=== PATIENT | female | born 1975 | race Caucasian/White ===

== ENCOUNTER 2020-10-13 09:06 | Outpatient (CLI) | payer SELFPAY ==
[2020-10-13 10:06] LABS: SARS-CoV-2 Ag Positive (Negative)
[2020-10-13 10:16] LABS: Influenza Control Valid (Valid)
== END 2020-10-13 09:07 | disposition home or self-care (01) ==
LOC: CHSLAB 09:09
PROVIDERS: PCP Physician Assistant; Visit Provider Physician Assistant
DX: U07.1 COVID-19 (principal)
CPT/HCPCS: 87426; 87804

== ENCOUNTER 2021-10-11 15:19 | Outpatient (CLI) | payer OTHER, SELFPAY ==
[2021-10-11 16:21] LABS: SARS-CoV-2 Ag Positive (Negative)
== END 2021-10-11 15:20 | disposition home or self-care (01) ==
PROVIDERS: PCP Family Medicine; Visit Provider Family Medicine
DX: U07.1 COVID-19 (principal)
CPT/HCPCS: 87426; C9803

== ENCOUNTER 2022-03-08 16:14 | Emergency (ER) | payer SELFPAY ==
[2022-03-08 16:20] VITALS: BP 136/84; PULSE 73; RESP 18; TEMP 36.3; O2SAT 97
--- NOTE | 2022-03-08 16:48 | ED_ITS ---
HPI - General Adult General Chief complaint: Unspecified Stated complaint: burning and numbness on tongue Source: patient Mode of arrival: ambulatory Limitations: no limitations History of Present Illness HPI narrative: this is a 46-year-old female with no significant past medical history presents with burning sensation in her tongue and some numbness has been using Listerine at night with no relief, there is some burning sensation with some numbness with some a burning sensation toward the back of her throat with no swollen tender glands no fever or chills no shortness of breath no facial edema no chest pain no shortness of breath no nausea vomiting. Onset (ago): month(s) Location: mouth Radiation: non-radiation Severity: mild Quality: burning Pain Consistency: constant Relieving factors: none Exacerbating factors: none Related Data Allergies Allergy/AdvReac Type Severity Reaction Status Date / Time No Known Allergies Allergy Verified 03/08/22 16:47 Review of Systems Review of Systems: All systems reviewed & are unremarkable except as noted in HPI and below PMFSH Past Medical History Medical History Patient denies medical problems Exam Const: General: healthy appearing and no acute distress Nutritional Appe arance: well nourished Orientation/consciousness: patient oriented x3 Limitations: no limitations HENMT: Head: normal to inspection Other: red glistening tongue with few white patches centrally located Eyes: Conjunctivae: conjunctivae normal Pupils: Equal, round and reactive pupils present EOM: EOMs intact bilaterally Direct Ophthalmoscopy: no photophobia Neck: Neck: normal visual inspection Chest: Chest palpation & inspection: normal inspection of the chest Resp: Effort & Inspection: normal respiratory effort Auscultation: clear to auscultation bilaterally Cardio: Rate: regular rate Rhythm: regular rhythm GI: GI Palp: Yes Soft to palpation Auscultation: normal bowel sounds Skin: General skin exam: normal color Rashes: no rashes Wounds: no wounds Neuro: General: patient oriented x3 Cranial nerves: Yes Nystagmus not present Speech: normal speech Extrem: General: normal to inspection and no clubbing, cyanosis or edema Psych: Mental Status: mental status grossly normal Course Course Emergency Course: talked to patient about what appears to be a oral thrush and will send nystatin swish and swallow to her pharmacy and advised patient to follow-up with her primary care physician for further evaluation and treatment. Critical Care Time Critical Care Time Critical Care Time: No Discharge Plan Discharge Clinical Impression: Oral thrush Patient Disposition: Home, Self-Care Condition: Stable Instructions: Antibiotic Form, Oral Candidiasis (ED) Additional Instructions: take medicine as prescribed and follow-up with primary care physician within 1 to 2 weeks for further evaluation and treatment. Prescriptions: New nystatin 100,000 unit/mL suspension 1 ml PO QID 10 Days Qty: 40 0RF Rx Instructions: administer 1/2 of dose in each side of the mouth Follow-up/Referrals: Cori,MD Milton [Primary Care Provider] - Time of Disposition: 16:53
[2022-03-08 16:51] VITALS: BP 136/84; PULSE 73; RESP 18; TEMP 36.3; O2SAT 97
== END 2022-03-08 16:55 | disposition home or self-care (01) ==
PROVIDERS: Emergency Provider Emergency Medicine; PCP Family Medicine
DX: B37.0 Candidal stomatitis (principal)
CPT/HCPCS: 99283

== ENCOUNTER 2024-12-10 01:51 | Emergency (ER) | payer OTHER, SELFPAY ==
[2024-12-10] VITALS (11 sets, daily range): BP systolic 116–165; BP diastolic 70–104; PULSE 78–110; RESP 16–20; TEMP 35.9–37; O2SAT 94–100
--- NOTE | 2024-12-10 02:00 | PC.NURSE ---
PATIENT WAS ABLE TO GIVE SMALL AMOUNT OF URINE. TAKEN DOWN TO LAB
--- NOTE | 2024-12-10 02:00 | ED.FEMALEGU ---
HPI - Female Genitourinary General Chief complaint: Urogenital-Female Stated complaint: side pain Time Seen by Provider: 12/10/24 02:00 Source: patient Mode of arrival: ambulatory Limitations: no limitations History of Present Illness HPI Narrative: 49-year-old female with no significant past medical history presents to the ED with a 2 hour history of -- left flank pain /left costovertebral pain which radiates anteriorly -- suprapubic pain no history of kidney stones or kidney infection. No fever or chills MD elicited complaint: back pain and flank pain Onset (ago): hour(s) ( 2 hours) Location of symptoms: suprapubic and flank Severity: severe Quality of pain: aching Consistency: constant Exacerbating factors: none Relieving factors: none Treatment prior to arrival: none Related Data Allergies Allergy/AdvReac Type Severity Reaction Status Date / Time No Known Allergies Allergy Verified 03/08/22 16:47 Review of Systems Review of Systems: All systems reviewed & are unremarkable except as noted in HPI and below Constitutional: Constitutional: Reports as per HPI and Reports no additional constitutional complaints Eyes: Eyes: Reports as per HPI and Reports no additional eye complaints ENT: Reports system reviewed and no additional complaints, except as documented and Reports as per HPI Cardiovascular: Cardiovascular: Reports as per HPI and Reports no additional cardiovascular complaints Respiratory: Respiratory: Reports as per HPI and Reports no additional respiratory complaints Gastrointestinal: Gastrointestinal: Reports as per HPI and Reports no additional gastrointestinal complaints Genitourinary: Genitourinary: Reports flank pain Comments: left CV angle pain/flank pain Musculoskeletal: Musculoskeletal: Reports no additional musculoskeletal complaints and Reports as per HPI Integumentary/Breasts: Skin/Breast: Reports system reviewed and no additional complaints, except as docu and Reports as per HPI Neurologic: Reports system reviewed and no additional complaints, except as documented and Reports as per HPI Psychiatric: Psychiatric: Reports no additional psychiatric complaints and Reports as per HPI Endocrine: Endocrine: Reports no additional endocrine complaints and Reports as per HPI Hematologic/Lymphatic: Hematologic/Lymphatic: Reports no additional hematologic/lymphatic complaints and Reports as per HPI Allergic/Immunologic: Allergic/Immunologic: Reports no additional allergic/immunologic complaints and Reports as per HPI [facility] Past Medical History Medical History Patient denies medical problems Exam Narrative: blood pressure 165/104. afebrile Const: General: ill appearing Orientation/consciousness: patient oriented x3 Limitations: no limitations HENMT: Head: normal to inspection Ears: external ears normal Face/Nose/Sinus: Normal external nose present Face and sinus: normal facial exam Mouth: Yes Normal oral and palatal mucosa present Eyes: Conjunctivae: conjunctivae normal Pupils: Equal, round and reactive pupils present EOM: EOMs intact bilaterally Direct Ophthalmoscopy: no photophobia Neck: Neck: normal visual inspection, no lymphadenopathy and no meningeal signs Chest: Chest palpation & inspection: normal inspection of the chest Resp: Effort & Inspection: normal respiratory effort Auscultation: clear to auscultation bilaterally Cardio: Rate: regular rate Rhythm: regular rhythm GI: GI Palp: Yes Soft to palpation Auscultation: normal bowel sounds Other: tenderness over the left CVA angle/flank/ suprapubic : General: Yes CVA tenderness Back/Spine/Pelvis: Back: CVA tenderness Skin: General skin exam: normal color Rashes: no rashes Wounds: no wounds Neuro: General: patient oriented x3, moves all extremities, no meningeal signs, no focal motor deficits and CN's II-XI intact bilaterally Cranial nerves: Yes Nystagmus not present Speech: normal speech Gait exam (Neuro): Normal gait present Extrem: General: normal to inspection and no clubbing, cyanosis or edema Psych: Appearance: grossly normal Mental Status: mental status grossly normal Affect: normal affect Attitude: cooperative Course Course Emergency Course: left flank pain-- CT of the abdomen revealed 3-4 mm calculus in the proximal left ureter with left hydronephrosis urinary tract infection-- patient received IV Levaquin. Vital Signs Vital signs: Vital Signs Temperature 35.9 C L 12/10/24 01:56 Pulse Rate 105 H 12/10/24 01:56 Respiratory Rate 18 12/10/24 01:56 Blood Pressure 165/104 H 12/10/24 01:56 Pulse Oximetry 99 12/10/24 01:56 Oxygen Delivery Room Air 12/10/24 01:56 Temperature 35.9 C L 12/10/24 01:56 Pulse Rate 78 12/10/24 04:17 Respiratory Rate 16 12/10/24 04:17 Blood Pressure 116/70 12/10/24 04:17 Pulse Oximetry 100 12/10/24 04:17 Oxygen Delivery Room Air 12/10/24 04:17 MDM - Female Genitourinary MDM Narrative Medical decision making narrative: Left ureteric stone with hydronephrosis and UTI-- discuss with who advised the patient to transfer to [facility] for ureteric sten hepatic steatosis Lab Data 12/10/24 02:05 12/10/24 02:05 Labs: Lab Results 12/10/24 12/10/24 Range/Units 02:05 02:13 WBC 6.9 (4.8-10.8) K/mm3 RBC 4.59 (4.20-5.40) M/mm3 Hgb 14.4 (12.0-15.0) g/dL Hct 44.0 (35.0-49.0) % MCV 95.9 (78.0-102.0) fL MCH 31.4 H (27.0-31.0) pg MCHC 32.7 (32-36) g/dL RDW 13.2 (11.6-14.4) % Plt Count 182 (150-420) K/mm3 MPV 10.5 (9.2-11.8) fl Immature Gran % (Auto) 0.4 H (0.0-0.0) % Neut % (Auto) 52.7 (50.0-70.0) % Lymph % (Auto) 36.0 (18.0-42.0) % Trinity % (Auto) 8.6 (2.0-11.0) % Eos % (Auto) 2.0 (1.0-6.0) % Baso % (Auto) 0.3 (0.0-1.0) % Lymph # (Auto) 2.48 (1.10-4.50) K/mm3 Trinity # (Auto) 0.59 (0.10-0.90) K/mm3 Eos # (Auto) 0.14 (0.02-0.50) K/mm3 Baso # (Auto) 0.02 (0.00-0.10) K/mm3 Abs Immat Gran (auto) 0.03 H (0.00-0.00) K/mm3 Absolute Neuts (auto) 3.62 (1.70-7.20) K/mm3 Absolute Nucleated RBC 0.00 (0.00-0.00) K/mm3 Nucleated RBC % 0.0 (0-0.0) % PT 11.0 (9.50-12.1) Seconds INR 1.0 APTT 23.7 L (23.9-30.70) Sec Sodium 145 (136-145) mmol/L Potassium 4.0 (3.5-5.1) mmol/L Chloride 106 (98-108) mmol/L Carbon Dioxide 29 (21-32) mmol/L Anion Gap 10 (4-12) mmol/L BUN 14 (7-18) mg/dL Creatinine 1.30 H (0.55-1.02) mg/dL Estim Creat Clear Calc 53 ml/min Estimated GFR 44 L (59 - ) Glucose 121 H (70-99) mg/dL Calculated Osmolality 301 H (285-295) mOsm/kg Lactic Acid 1.6 (0.4-2.0) mmol/L Calcium 9.2 (8.5-10.1) mg/dL Total Bilirubin 0.4 (0.00-1.00) mg/dL AST 36 (15-37) U/L ALT 57 (14-59) U/L Alkaline Phosphatase 116 (46-116) U/L Total Protein 7.8 (6.4-8.2) g/dL Albumin 3.9 (3.4-5.0) g/dL Lipase 89 H (16-77) U/L Urine Color Henna A (Yellow) Urine Appearance Cloudy A (Clear) Urine pH 5.0 (5.0-8.0) Ur Specific [place] >= 1.030 H (1.010-1.020) Urine Protein 3+ H (Negative) Urine Glucose (UA) Negative (Negative) Urine Ketones Trace H (Negative) Ur Blood (Man) 3+ H (Negative) Urine Nitrate Positive H (Negative) Urine Bilirubin 1+ H (Negative) Urine Urobilinogen 1.0 (0.2-1.0) mg/dL Leukocyte Esterase Rfl 2+ H (Negative) LAUREN/UL Urine RBC >75 H (0-2) /hpf Urine WBC 7-9 H (0-3) /hpf Ur Squamous Epith Cells Few (Few) /hpf Urine Bacteria 2+ H (None) /hpf Urine Yeast (Budding) Present H (None) /hpf Discharge Plan Discharge Clinical Impression: Calculi, ureter Urinary tract infection Qualifiers: Urinary tract infection type: site unspecified Hematuria presence: with hematuria Qualified Code(s): N39.0 - Urinary tract infection, site not specified Patient Disposition: Still a Patient Condition: Stable Additional Instructions: discussed with urologist . advised to transfer the patient to [facility]. Patient Language: Indonesian Prescriptions: No Action nystatin 100,000 unit/mL suspension 1 ml PO QID 10 Days Qty: 40 0RF Rx Instructions: administer 1/2 of dose in each side of the mouth Follow-up/Referrals: Albina,MERCY Diaz [Primary Care Provider] - Time of Disposition: 06:54
[2024-12-10 02:16] LABS: Appearance Urine Cloudy (Clear); Bilirubin Urine 1+ (Negative); Blood Urine 3+ (Negative); Glucose Urine UA Negative (Negative); Ketones Urine Trace (Negative); Leukocyte Esterase Ur 2+ LEU/UL (Negative); Nitrate Urine Positive (Negative); Protein Urine 3+ (Negative); Specific Grav Ur >= 1.030 (1.010-1.020)
[2024-12-10 02:16] LABS: Basophils Absolute Auto 0.02 K/mm3 (0.00-0.10); Basophils Percent Auto 0.3 % (0.0-1.0); Eosinophils Absolute Auto 0.14 K/mm3 (0.02-0.50); Hemoglobin 14.4 g/dL (12.0-15.0); Immature Granulocyte Absolute 0.03 K/mm3 (0.00-0.00); Immature Granulocyte Percent A 0.4 % (0.0-0.0); Lymphocytes Absolute Auto 2.48 K/mm3 (1.10-4.50); Mean Corpuscular HGB Conc 32.7 g/dL (32-36); Mean Corpuscular Hemoglobin 31.4 pg (27.0-31.0); Mean Corpuscular Volume 95.9 fL (78.0-102.0); Mean Platelet Volume 10.5 fl (9.2-11.8); Monocytes Absolute Auto 0.59 K/mm3 (0.10-0.90); Monocytes Percent Auto 8.6 % (2.0-11.0); Neutrophils Absolute Auto 3.62 K/mm3 (1.70-7.20); Neutrophils Percent Auto 52.7 % (50.0-70.0); Platelet Count Result 182 K/mm3 (150-420); Red Blood Count 4.59 M/mm3 (4.20-5.40); Red Cell Distribution Width 13.2 % (11.6-14.4); White Blood Count 6.9 K/mm3 (4.8-10.8)
[2024-12-10] MEDS: ONDANSETRON INJ 4 MG/2 ML VIAL IV PUSH ×2 (02:16→08:18)
[2024-12-10] MEDS: HYDROmorphone HCL INJ (*CRX) 2 MG/ML VIAL 0.5 MG IV PUSH (02:17)
[2024-12-10] MEDS: LACTATED RINGERS 1,000 ML 999 ML IV CONT (02:20)
[2024-12-10 02:23] LABS: Add Urine Microscopic? YES; Color Urine Amber (Yellow); RBC Urine >75 /hpf (0-2)
[2024-12-10 02:24] LABS: Bacteria Urine 2+ /hpf; Budding Yeast Urine Present /hpf; Squamous Epithelial Cell Urine Few /hpf (Few)
--- NOTE | 2024-12-10 02:24 | PC.NURSE ---
PATIENT TRANSPORTED TO CT VIA STRETCHER. PATIENT HEARD OTHER PATIENT, WHO JUST ARRIVED AND IS NOW LAUGHING WITH STAFF AND NO LONGER MOANING
[2024-12-10 02:28] LABS: Partial Thromboplastin Time 23.7 Sec (23.9-30.70)
[2024-12-10 02:29] LABS: Alanine Aminotransferase 57 U/L (14-59); Albumin Level 3.9 g/dL (3.4-5.0); Alkaline Phosphatase 116 U/L (46-116); Anion Gap 10 mmol/L (4-12); Aspartate Amino Transferase 36 U/L (15-37); Bilirubin,Total 0.4 mg/dL (0.00-1.00); Blood Urea Nitrogen 14 mg/dL (7-18); Calcium 9.2 mg/dL (8.5-10.1); Carbon Dioxide 29 mmol/L (21-32); Chloride 106 mmol/L (98-108); Estimated CRCL calculation 53 ml/min; Estimated Glomerular Filt Rate 44; Glucose 121 mg/dL (70-99); Lipase 89 U/L (16-77); Osmolality Calculated 301 mOsm/kg (285-295); Sodium 145 mmol/L (136-145); Total Protein 7.8 g/dL (6.4-8.2)
--- NOTE | 2024-12-10 02:29 | PC.NURSE ---
PATIENT RETURNED TO ROOM.
[2024-12-10 02:33] LABS: Lactic Acid Reflex 1.6 mmol/L (0.4-2.0)
--- OUTSIDE RECORDS SUMMARY | 2024-12-10 03:00 | XMS_ITS | Clinical Summary ---
Author Organization [facility] Address [address] [place] [id number] Care Team Providers Care Civilian Technician Name Role Phone Milton Persaud MD Primary Care Provider [phone] Allergies Active Allergy Reactions Criticality Noted Date Comments Codeine Vomiting 07/02/2023 Medications atorvastatin (LIPITOR) 20 MG tablet Take 1 tablet (20 mg total) by mouth nightly at bedtime. Active vitamin D2, ergocalciferol, (DRISDOL) 1.25 mg capsule Take 1 capsule (1.25 mg total) by mouth every 7 days. Active ondansetron (ZOFRAN-ODT) 4 MG disintegrating tablet Take 1 tablet (4 mg total) by mouth every 8 (eight) hours as needed for Nausea. 12 tablet 3 Active nystatin (MYCOSTATIN) 090760 UNIT/ML suspension TAKE 5 ML BY MOUTH DIRECTED 4 TIMES DAILY FOR 10 DAYS 4 Active omeprazole (PRILOSEC) 40 MG capsule Take 1 capsule (40 mg total) by mouth 2 (two) times daily. 4 Active metroNIDAZOLE (METROGEL) 0.75 % gel Apply topically 2 (two) times daily. 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 Gender Identity Not on file Sexual Orientation Not on file Last Filed Vital Signs Vital Sign Reading Time Taken Comments Blood Pressure 124/68 07/28/2024 10:18 AM CDT Pulse 67 07/28/2024 10:18 AM CDT Temperature 36.5 C (97.7 F) 07/28/2024 10:18 AM CDT Respiratory Rate 16 07/28/2024 10:18 AM CDT Oxygen Saturation 100% 07/28/2024 10:18 AM CDT Inhaled Oxygen Concentration - - Weight 105.7 kg (233 lb) 07/28/2024 8:43 AM CDT Height 154.9 cm (5' 1 ) 07/28/2024 8:43 AM CDT Body Mass Index 44.02 07/28/2024 8:43 AM CDT Plan of Treatment Health Maintenance Due Date Last Done Comments Colorectal Cancer Screening Colonoscopy (10 Years) 1975 Annual Physical 1978 Hepatitis C 1993 DTaP, Tdap and Td Vaccines (1 - Tdap) 1994 Hepatitis B Vaccines (1 of 3 - 19+ 3-dose series) 1994 COVID-19 Vaccine ( - season) 2024 Influenza Adult (#1) 2024 Mammogram Screening 07/16/2026 07/16/2024, 12/18/2022, 11/27/2021, Additional history exists Meningococcal B Vaccine Aged Out No l onger eligible based on patient's age to complete this topic Meningococcal Vaccine Aged Out No saira randi eligible based on patient's age to complete this topic Pneumococcal Vaccine: Pediatrics (0 to 5 Years) and At-Risk Patients (6 to 64 Years) Aged Out No longer eligible based on patient's age to complete this topic RSV Immunizations Under 20 Months Aged Out No longer eligible based on patient's age to complete this topic Procedures Procedure Name Priority Date/Time Associated Diagnosis Comments MG SCREENING W ROBINSON ZAFAR DIGI Routine 07/16/2024 4:31 PM CDT Visit for screening mammogram from Last 3 Months or Most Recently Relevant to Health Maintenance Results * MG SCREENING W ROBINSON ZAFAR DIGI (07/16/2024 4:31 PM CDT) Anatomical Region Laterality Modality Breast Bilateral Mammography 07/17/2024 12:0 9 PM CDT Impressions 07/17/2024 12:11 PM CDT ===== IMPRESSION: ===== 1. Stable mammographic appearance with no new findings to suggest malignancy in either breast. Assessment: ACR BI-RADS 2 - BENIGN FINDING(S) Recommendation: 1:Routine Screening Bilateral Comments: Ordered By: TYRESE CANSECO Interpreted By: Tim Salas MD, 07/17/2024 12:09 PM Narrative 07/17/2024 12:[address] PM [address] [place] [address] Examination: Digital bilateral screening mammogram with 3D Tomosynthesis Exam Date/Time: 07/16/2024 4:06 PM Reason For Exam: No prior breast procedures. 30 pound weight gain over the past year. No personal or first-degree relative history of breast cancer. No current complaints. Comparison: Mammograms from 12/18/2022 11/27/2021 07/10/2019 Technique: Digital screening mammography of both breasts was performed in addition to 3-D Tomosynthesis technique. This study was read with the assistance of a computer-aided detection system. Tissue density: There are scattered areas of fibroglandular density. Findings: Benign bilateral axillary lymph nodes. No suspicious interval change in parenchymal pattern from prior studies. There is no new focal asymmetry, dominant mass lesion, area of skin thickening, or cluster of suspicious appearing calcifications in either breast to suggest malignancy. us Tyrese Canseco MD MAMMO Final Resu lt from Last 3 Months or Most Recently Relevant to Health Maintenance Insurance [place] [employer] Care Teams Civilian Technician Relationship Specialty Start Date End Date Milton Persaud MD [address] [place] [phone] PCP - General FAMILY PRACTICE 03/13/19
--- OUTSIDE RECORDS SUMMARY | 2024-12-10 03:00 | XMS_ITS | Encounter Summary ---
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
--- NOTE | 2024-12-10 03:15 | PC.NURSE ---
IS GOING HOME FOR NOW. PATIENT IS RESTING ON STRETCHER. CALL LIGHT IN REACH
[2024-12-10] MEDS: TAMSULOSIN HCL 0.4 MG CAPSULE PO (03:36)
--- NOTE | 2024-12-10 04:00 | PC.NURSE ---
RESTING ON STRETCHER. CURRENTLY WAITING ON CT RESULTS. DENIES ANY NEEDS
[2024-12-10] MEDS: levoFLOXacin 500 MG/D5W 100 ML 500 MG/100 ML BAG 100 MG IVPB (04:31)
--- NOTE | 2024-12-10 05:00 | PC.NURSE ---
CURRENTLY RESTING ON STRETCHER WITH EYES CLOSED. RESP EVEN AND UNLABORED. CALL LIGHT IN REACH.
--- NOTE | 2024-12-10 07:06 | PC.NURSE ---
REPORT GIVEN TO JULIA CARDENAS
[2024-12-10] MEDS: LACTATED RINGERS 1,000 ML 100 ML IV CONT (08:18)
--- NOTE | 2024-12-12 13:07 | PC.NURSE ---
Final urine culture report; mixed genital sheila isolated, no further action or treatment needed per erp Dr. Harvey
== END 2024-12-10 09:45 | disposition short-term general hospital (02) ==
PROVIDERS: Emergency Provider Internal Medicine Critical Care Medicine; PCP Physician Assistant
DX: N20.1 Calculus of ureter (principal); N39.0 Urinary tract infection, site not specified
CPT/HCPCS: 36415; 74176; 80053; 81001; 83605; 83690; 85025; 85610; 85730; 87086; 96361; 96365; 96375; 96376; 99285; A9270; J1171; J1956; J2405; J7120

== ENCOUNTER 2024-12-15 14:48 | Emergency (ER) | payer OTHER, SELFPAY ==
--- NOTE | ~2024-12-15 | CT_ITS ---
EXAMINATION: CT abdomen pelvis wo con DATE: 12/15/2024 16:06 INDICATION: Left ureteral stent with left flank pain TECHNIQUE: Computed tomography (CT) of the abdomen and pelvis was performed without intravenous contr ast. Automated exposure control and iterative reconstruction technique were employed. The dose-length product was 1370.72 mGy-cm. COMPARISON: 12/10/2024 FINDINGS: Lung bases are clear. Heart size is normal. No pericardial or pleural effusion. Small sliding-type hi atal hernia. Cholecystectomy clips the gallbladder fossa. There is diffuse hepatic steatosis with foc al sparing along the gallbladder fossa. Spleen, pancreas, right kidney and bilateral adrenal glands a re normal. Peripheral placement of a left internal ureteral stent with loops in expected position at the left renal pelvis and in the bladder. The previously seen 3 to 4 mm stone in the proximal left ur eter has regressed distally, now seen alongside the anterior margin of the ureteral stent 4 cm above level of the ureterovesicular junction (on series 3, image 149 and sagittal series 602, image 109). T here are scattered colonic diverticula without adjacent from trace stranding to suggest diverticuliti s. Small bowel and appendix are normal. Tiny fat-containing umbilical hernia with change of likely un derlying umbilical hernia mesh repair. Caudal to the umbilical umbilical hernia mesh repair is a larg er widemouthed fat-containing ventral hernia. The uterus is not identified and has likely been surgic ally resected. No free intraperitoneal gas or fluid. No pathologically enlarged abdominal or pelvic l ymphadenopathy. Bones are unremarkable. IMPRESSION: 1. Interval placement of a left internal ureteral stent which is in expected position with advancemen t of a 3-4 mm stone previously in the proximal left ureter, now along side the stent in the distal ur eter 4 cm above the ureterovesicular junction. Reviewed, dictated and finalized at location B. GIOUS ACTIVITIES DIRECTOR IMPRESSION: 1. Interval placement of a left internal ureteral stent which is in expected po sition with advancement of a 3-4 mm stone previously in the proximal left urete r, now along side the stent in the distal ureter 4 cm above the ureterovesicula r junction.
[2024-12-15 14:51] VITALS: BP 152/68; PULSE 97; RESP 16; TEMP 36.6; O2SAT 95
--- NOTE | 2024-12-15 15:55 | ED.FEMALEGU ---
HPI - Female Genitourinary General Chief complaint: Urogenital-Female Stated complaint: bladder pain, has renal stent Time Seen by Provider: 12/15/24 15:19 History of Present Illness HPI Narrative: Patient presenting here with left flank pain and hematuria, this has been persistent since she got a stent placed a few days ago. She did take a Tylenol 3 right before arriving here and now her pain has completely resolved. Related Data Allergies Allergy/AdvReac Type Severity Reaction Status Date / Time No Known Allergies Allergy Verified 03/08/22 16:47 Review of Systems Review of Systems: All systems reviewed & are unremarkable except as noted in HPI and below PMFSH Past Medical History Medical History Patient denies medical problems Exam Narrative: EXAMINATION OF ORGAN SYSTEMS/BODY AREAS: Constitutional: Vital signs per nursing GENERAL:[No acute distress, non-toxic appearing.] HEAD: Normal with no signs of head trauma. EYES: EOMI, conjunctiva normal ENT: Hearing grossly intact LUNGS: Nonlabored breathing. HEART: [Regular rate and rhythm] ABD: [Soft], [nontender to palpation], no significant left CVA tenderness EXT: Normal range of motion SKIN: [No rashes or lesions.] NEURO: [Alert and oriented x 3. No gross focal sensory or strength deficits.] PSYCH: Normal affect Course Vital Signs Vital signs: Vital Signs Temperature 97.8 F 12/15/24 14:51 Pulse Rate 97 12/15/24 14:51 Respiratory Rate 16 12/15/24 14:51 Blood Pressure 152/68 H 12/15/24 14:51 Pulse Oximetry 95 12/15/24 14:51 Oxygen Delivery Room Air 12/15/24 14:51 Temperature 97.8 F 12/15/24 14:51 Pulse Rate 97 12/15/24 14:51 Respiratory Rate 16 12/15/24 14:51 Blood Pressure 152/68 H 12/15/24 14:51 Pulse Oximetry 95 12/15/24 14:51 Oxygen Delivery Room Air 12/15/24 14:51 MDM - Female Genitourinary MDM Narrative Medical decision making narrative: 49-year-old female presenting with left flank pain, she has also had persistent hematuria, had a recent stent placement a few days ago, the pain has now completely resolved. Will obtain CT here to ensure stent in good place, and UA to ensure resolution of infection. She has been taking Bactrim CT shows good placement of stent, with advancement of stone. UA without obvious acute infection at this time. Discussed with patient, she continues to be very well appearing in no distress, agreeable to outpatient management with follow-up to her urologist with strict return precautions. Partner at bedside. Lab Data Labs: Lab Results 12/15/24 Range/Units 15:36 Urine Color Light red H (Yellow) Urine Appearance Clear (Clear) Urine pH 6.0 (5.0-9.0) Ur Specific [place] 1.009 (1.001-1.035) Urine Protein 2+ H (Negative) mg/dL Urine Glucose (UA) Negative (Negative) mg/dL Urine Ketones Negative (Negative) mg/dL Ur Blood (Man) 3+ H (Negative) Urine Nitrate Negative (Negative) Urine Bilirubin Negative (Negative) Urine Urobilinogen 0.2 (<2.0) mg/dL Leukocyte Esterase Rfl 1+ H (Negative) LAUREN/UL Urine RBC >100 H (0-2) /hpf Urine WBC 6-10 H (0-3) /hpf Ur Squamous Epith Cells Occasional (Few) /hpf Urine Bacteria None seen /hpf Urine Casts 0-2 Discharge Plan Discharge Clinical Impression: Ureterolithiasis Patient Disposition: Home, Self-Care Condition: Stable Instructions: Ureteral Stones (ED), Ureteral Stent Placement (DC) Additional Instructions: Please follow up with your urologist; you can always return to the ER for any further issues Patient Language: Luxembourgish Prescriptions: No Action nystatin 100,000 unit/mL suspension 1 ml PO QID 10 Days Qty: 40 0RF Rx Instructions: administer 1/2 of dose in each side of the mouth Follow-up/Referrals: Albina,MERCY Diaz [Primary Care Provider] -
[2024-12-15 16:53] LABS: Bacteria Urine None Seen /hpf; Non Pathogenic Casts 0-2; RBC Urine >100 /hpf (0-2); Squamous Epithelial Cell Urine Occasional /hpf (Few)
[2024-12-15 17:02] LABS: Add Urine Microscopic? YES; Appearance Urine Clear (Clear); Bilirubin Urine Negative (Negative); Blood Urine 3+ (Negative); Glucose Urine UA Negative (Negative); Ketones Urine Negative (Negative); Leukocyte Esterase Ur 1+ LEU/UL (Negative); Nitrate Urine Negative (Negative); Protein Urine 2+ mg/dL (Negative); Specific Grav Ur 1.009 (1.001-1.035); Urobilinogen Urine 0.2 mg/dL (<2.0)
[2024-12-15 17:04] LABS: Color Urine Light Red (Yellow)
--- OUTSIDE RECORDS SUMMARY | 2024-12-15 17:08 | XMS_ITS | Encounter Summary ---
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
--- OUTSIDE RECORDS SUMMARY | 2024-12-15 17:09 | XMS_ITS | Clinical Summary ---
Author Organization [facility] Address [address] [place] [address] Care Team Providers Care Hydraulic Operator Name Role Phone Milton Persaud MD Primary Care Provider [phone] Allergies Active Allergy Reactions Criticality Noted Date [...] Nausea. 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
[2024-12-15 17:30] VITALS: BP 150/77; PULSE 65; RESP 16; O2SAT 97
--- OUTSIDE RECORDS SUMMARY | 2024-12-15 17:36 | XMS_ITS | Clinical Summary ---
Author Organization [facility] Address [address] [place] [id number] Care Team Providers Care Planner/Scheduler Name Role Phone Milton Persaud MD Primary Care Provider [phone] Allergies Active Allergy Reactions Criticality Noted Date [...] Nausea. 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
--- OUTSIDE RECORDS SUMMARY | 2024-12-15 17:36 | XMS_ITS | Encounter Summary ---
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
== END 2024-12-15 17:45 | disposition home or self-care (01) ==
PROVIDERS: Emergency Provider Emergency Medicine; PCP Physician Assistant
DX: N20.1 Calculus of ureter (principal)
CPT/HCPCS: 74176; 81001; 87086; 99284

== ENCOUNTER 2025-01-31 21:31 | Emergency (ER) | payer OTHER, SELFPAY ==
--- NOTE | ~2025-01-31 | XR_ITS ---
EXAM: XR knee RT 3V DATE: 01/31/2025 21:51 HISTORY: FALL THIS EVENING. RIGHT KNEE PAIN. . COMPARISON: None available. FINDINGS: Normal mineralization. No fracture or dislocation. No lytic or blastic lesion. Joint space s are maintained. Quadriceps enthesopathy. No erosion or periosteal change. Soft tissues within kumar l limits. Trace right knee joint fluid. IMPRESSION: No acute osseous finding in the right knee. Reviewed, dictated and finalized at location K.
--- NOTE | ~2025-01-31 | XR_ITS ---
EXAM: XR foot RT min 3V DATE: 01/31/2025 21:51 HISTORY: toe and foot pain after fall this evening. . COMPARISON: None available. FINDINGS: Normal mineralization. No fracture or dislocation. No lytic or blastic lesion. Joint space s are maintained. Achilles and plantar enthesopathy No erosion or periosteal change. Soft tissues wit hin normal limits. IMPRESSION: No acute osseous finding in the right foot. Reviewed, dictated and finalized at location K.
[2025-01-31 21:34] VITALS: BP 129/100; PULSE 90; RESP 15; TEMP 36.6; O2SAT 100
--- OUTSIDE RECORDS SUMMARY | 2025-01-31 21:35 | XMS_ITS | Clinical Summary ---
Author Organization [facility] Address [address] [place] [address] Care Team Providers Care Collar Pointer Name Role Phone Milton Persaud MD Primary Care Provider [phone] Source Comments [facility],non-owned Affiliates and Associated Physician Practices is amultiple site organization consisting of ambulatory clinics and hospital sitesin [place], [place], [place] and [place]. This disclosure is being madepursuant to the Care Everywhere program and may not contain all information available regarding this patient. Last updated 18.[facility] Allergies No known active allergies Medications * Be aware that medications may not be up to date on this document. Alwaysverify current medications with the patient. omeprazole (PriLOSEC) 40 MG capsule Take 1 (one) capsule by mouth daily before breakfast Active vitamin D, ergocalciferol, (Drisdol) 1.25 MG (48614 UT) capsule Take 1 (one) capsule by mouth every 7 days Active atorvastatin (Lipitor) 20 MG tablet Take 1 (one) tablet by mouth at bedtime Active acetaminophen (Tylenol) 500 MG tablet Take 1 (one) tablet by mouth every 4 hours as needed for Fever or Pain 30 tablet 12/31/2024 5:09 PM CDT 5 Active ibuprofen (Motrin) 400 MG tablet Take 1 (one) tablet by mouth every 6 hours as needed for Pain 30 tablet 12/31/2024 5:09 PM CDT 5 Active tamsulosin (Flomax) 0.4 MG capsule Take 1 (one) capsule by mouth once daily after breakfast At the same time every day after a meal. 30 capsule 5 Active oxyCODONE, immediate release, (Roxicodone) 5 MG tabletIndicatio ns:Ureterolithi asis Take 1 (one) tablet by mouth every 6 hours as needed for Pain 5 tablet 12/31/2024 5:09 PM CDT Active ondansetron, disintegrating, (Zofran ODT) 4 MG tablet Take 1 (one) tablet by mouth every 6 hours as needed for Nausea/Vomitin g Allow tablet to dissolve on the tongue 30 tablet 12/12/2024 9:16 AM CLAIM EXAMINER 01/12/20 Active Problems Problem Noted Date Diagnosed Date Hydronephrosis, unspecified hydronephrosis type 12/10/2024 Urinary tract infection without hematuria, site unspecified 12/10/2024 GERD (gastroesophageal reflux disease) HLD (hyperlipidemia) 12/10/2024 Encounters Date Type Department Care Team Description 12/31/2024 2:06 PM CDT Anesthesia Event [facility] [address] [place] [phone] Dg Burnett MD Keeven, Grace C, VISITOR SERVICES COORDINATOR-RETAIL SALES LEAD 12/31/2024 2:00 PM CDT - 12/31/2024 3:45 PM CDT Surgery [facility] [address] [place] [phone] Norbert Cormier MD Cystoscopy, LEFT retrograde pyelogram 12/31/2024 12:02 PM CDT - 12/31/2024 6:26 PM CDT Hospital Encounter [facility] [address] [place] [phone] Norbert Cormier MD Surgery General Discharge Disposition: Home or Self Care 12/31/2024 Travel 12/23/2024 Travel 12/21/2024 Telephone [facility] - Urology [address] [place] [address] [address] [place] [phone] Norbert Cormier MD 12/11/2024 7:30 AM CLAIM EXAMINER - 12/11/2024 8:48 AM CLAIM EXAMINER Surgery [facility] [address] [place] [phone] Norbert Cormier MD CYSTOSCOPY WITH INSERTION LEFT URETERAL STENT 12/11/2024 7:30 AM CLAIM EXAMINER Anesthesia Event [facility] [address] [place] [phone] Dg Burnett MD Kirkpatrick, Holly E, APRN-CYLINDER DIE MACHINE OPERATOR 12/11/2024 Orders Only [facility] - Urology [address] [place] [address] [address] [place] [address] Joesph Hillman MD Kidney stones 12/10/2024 10:47 AM CLAIM EXAMINER - 12/12/2024 5:16 PM CLAIM EXAMINER Hospital Encounter [facility] [address] [place] [address] Álvaro Daugherty MD Stanley, Chad, MD Pollard, Kelvin L II, MD Raza, Awais, MD Internal Medicine Discharge Disposition: Home or Self Care 12/10/2024 10:45 AM CLAIM EXAMINER - 12/10/2024 10:46 AM CLAIM EXAMINER Emergency [facility] [address] [place] [phone] Discharge Disposition: Home or Self Care 12/10/2024 Travel from Last 3 Months Social History Tobacco Use Types Packs/Day Years Used Date Smoking Tobacco: Never Passive Smoke Exposure: Never Smokeless Tobacco: Never Tobacco Cessation:Counseling Given: Not Answered Alcohol Use Standard Drinks/Week Comments Not Currently 0 (1 standard drink = 0.6 oz pur e alcohol) AUDIT-C Answer Date Recorded Q1: How often do you have a drink containing alcohol? Never 12/10/2024 Q2: How many drinks containi ng alcohol do you have on a typical day when you are drinking? Patient does not drink Q3: How often do you have si x or more drinks on one occasion? Never 12/10/2024 Overall Financial Resource Strain (CARDIA) Answe r Date Recorded How hard is it for you to pa y for the very basics like food, housing, medical care, and heating? Not hard at all 12/10/2024 [facility] of Occupat ional Health - Occupational Stress Questionnaire Answer Date Recorded Do you feel stress - tense, restless, nervous, or anxious, or unable to sleep at night because your mind is troubled all the time - these days? Only a little 12/10/2024 Hunger Vital Sign Answer Date Recorded Within the past 12 months, y ou worried that your food would run out before you got the money to buy more. Never true 12/10/19 25 Within the past 12 months, t he food you bought just didn't last and you didn't have money to get more. Never true 12/10/2024 PRAPARE - Transportation Answer Date Re corded In the past 12 months, has l ack of transportation kept you from medical appointments or from getting medications? No 11/15 In the past 12 months, has l ack of transportation kept you from meetings, work, or from getting things needed for daily living? No 12/10/2024 Housing Stability Vital Sign Answer Piotr e Recorded In the last 12 months, was t here a time when you were not able to pay the mortgage or rent on time? No 12/10/2024 In the past 12 months, how m any times have you moved where you were living? 0 12/10/2024 At any time in the past 12 m [facility], were you homeless or living in a custodial (including now)? No 12/10/2024 Comments No Sex and Gender Information Value Date Recorded Sex Assigned at Not on file Legal Sex Female 9:07 AM CLAIM EXAMINER Gender Identity Not on file Sexual Orientation Not on file Last Filed Vital Signs Vital Sign Reading Time Taken Comments Blood Pressure 129/81 12/31/2024 6:06 PM CDT Pulse 93 12/31/2024 6:06 PM CDT Temperature 36.7 C (98 F) 12/31/2024 4:58 PM CDT Respiratory Rate 16 12/31/2024 6:06 PM CDT Oxygen Saturation 95% 12/31/2024 6:06 PM CDT Inhaled Oxygen Concentration - - Weight 104.4 kg (230 lb 1.6 oz) 12/31/2024 1:46 PM CDT Height 154.9 cm (5' 1 ) 12/31/2024 1:44 PM CDT Body Mass Index 43.48 12/31/2024 1:44 PM CDT Plan of Treatment Upcoming Encounters Date Type Department Care Team (Late st Contact Info) Description 03/25/2025 11:00 AM CDT Office Visit [facility] - Urology [address] [place] [address] Raji Fiore PA [address] [place] [phone] Health Maintenance Due Date Last Done Comments COLOGUARD (AGES 45-75) - COLON CA SCREENING 1975 COLON MONITORING 1975 COLONOSCOPY - COLON CA SCREENING 1975 CT COLONOGRAPHY - COLON CA SCREENING 1975 Colorectal Cancer Screening 1975 FIT - COLON CA SCREENING 1975 FLEX SIG - COLON CA SCREENING 1975 PAP SMEAR 1975 HIV SCREENING 1990 HEPATITIS C SCREENING 10/06/1993 DTAP/TDAP/TD VACCINES (1 - Tdap) 1994 HEPATITIS B VACCINE (1 of 3 - 19+ 3-dose series) 1994 COVID-19 VACCINE ( - season) 2024 DEPRESSION SCREENING 10/14/2024 INFLUENZA VACCINE (Season Ended) 2025 ZOSTER VACCINE (1 of 2) 2025 MAMMOGRAM 07/16/2026 07/16/2024, 12/2023, 12/18/2022, Additional history exists HIB VACCINE Aged Out No longer eligi ble based on patient's age to complete this topic HPV VACCINE Aged Out No longer eligi ble based on patient's age to complete this topic MENINGOCOCCAL (Group B) VACCINE SHARED DECISION-MAKING Aged Out No longer eligible based on patient's age to complete this topic MENINGOCOCCAL GROUPS A/C/Y/W VACCINE Aged Out No longer eligible based on patient's age to complete this topic Medical Devices Implanted Type Area Explosive Ordnance Handler Device Identifier Shelf Expiration Date Model / Serial / Lot Stent Uret 6fr 24cm Sft Tria - Sna Implanted:Qty: 1 on 12/11/2024 by Norbert Cormier MD at [facility] Left: Ureter [employer]aine [id number] 06/23/2027 [id number] 20 / NA / [id number] Procedures Procedure Name Priority Date/Time Associated Diagnosis Comments ENDOTRACHEAL TUBE NOTE Routine 12/31/2024 2:20 PM CDT IN CYSTO/URETERO/PYELOS COPY W/LITHOTRIPSY 12/31/2024 1:36 PM CDT Kidney stones Case Notes Reviewed 12/25 [facility] [employer] [facility] [employer] Confirm # [id number] Tech and equipment IN CYSTOURETHROSCOPY,UR ETER CATHETER 12/31/2024 1:36 PM CDT Kidney stones Case Notes Reviewed 12/25 [employer] Confirm # [id number] Tech and equipment CULTURE URINE Routine 12/11/2024 8:23 AM CLAIM EXAMINER FL CYSTO SURGERY Routine 12/11/2024 7:58 AM CLAIM EXAMINER Urinary tract infection with hematuria, site unspecified ENDOTRACHEAL TUBE NOTE Routine 12/11/2024 7:50 AM CLAIM EXAMINER IN CYSTOSCOPY,INSERT URETERAL STENT 12/11/2024 7:22 AM CLAIM EXAMINER Kidney stone on left side HEMOGLOBIN A1C Routine 12/11/2024 6:27 AM CLAIM EXAMINER LIPID PROFILE AM Draw 12/11/2024 6:27 AM CLAIM EXAMINER MAGNESIUM BLOOD Routine 12/11/2024 6:27 AM CLAIM EXAMINER RENAL FUNCTION PANEL AM Draw 12/11/2024 6:27 AM CLAIM EXAMINER CBC W AUTO DIFFERENTIAL AM Draw 12/11/2024 6:27 AM CLAIM EXAMINER HCG BETA BLOOD QUANTITATIVE STAT 12/10/2024 6:48 PM CLAIM EXAMINER URINALYSIS REFLEX MICROSCOPIC REFLEX CULTURE STAT 12/10/2024 12:56 PM CLAIM EXAMINER COMPREHENSIVE METABOLIC PANEL STAT 12/10/2024 12:56 PM CLAIM EXAMINER CULTURE URINE STAT 12/10/2024 12:56 PM CLAIM EXAMINER CBC W AUTO DIFFERENTIAL STAT 12/10/2024 11:19 AM CLAIM EXAMINER from Last 3 Months Results * ETT LINE PERFORMABLE (12/31/2024 2:20 PM CDT) Narrative Sd Chamorro MD - 12/31/2024 2:20 PM CDT Sd Chamorro MD 12/31/2024 2:21 PM Endotracheal Tube Placement: Patient Location: OR. Intubation Event Date/Time: 12/31/2024 2:15 PM Procedure: intubation ([id number]) Procedure Section: Sedation: under general anesthesia. Indications for Airway Management: anesthesia Induction: standard IV Patient Position: supine Mask Ventilation: easy with oral airway. Blade Type: Jennifer Blade Size: 3 Laryngoscopy View: grade 1 (full cords) Intubation Adjuncts: stylet Tube: endotracheal tube Placement: oral Tube type: cuff - inflated Tube Size (MM): 7 Depth of Insertion (CM): 21 Measured From: gums Cuff Inflated With: air Number of Attempts: 1. Placement Verified By: direct visualization, bilateral breath sounds and CO2 monitor Tube secured with: adhesive tape. Dentition unchanged? Yes Difficult Airway? No. Procedure Start Time: 12/31/2024 2:15 PM. Staff Section Anesthesia Provider: Sd Chamorro MD, Performed the procedure us Charity Dahl MD GENERAL ANESTHESIA ORDERABLES Final Result * CULTURE URINE (12/11/2024 8:23 AM CLAIM EXAMINER) Only the most recent of2 resultswithin the time period is included. Culture Urine No growth (<100 CFU/mL) LALY 12/12/2024 11:05 AM CLAIM EXAMINER [facility] Urine URINE SPECIMEN OBTAINED BY CLEAN CATCH PROCEDURE / Unknown 12/11/2024 8:23 AM CLAIM EXAMINER 12/11/2024 8:23 AM CLAIM EXAMINER us Norbert Cormier MD LAB - MICROBIOLOGY ORDERABL ES Final Result [facility] [address] [place] [address], [place] [phone] * [place] Cysto Surgery (12/11/2024 7:58 AM CLAIM EXAMINER) Narrative [facility] - 12/11/2024 6:28 PM CLAIM EXAMINER Fluoroscopy was used for this exam in the OR. Please see the Operative report. Norbert Cormier MD FLUOROSCOPY ORDERABLES Mari villela Result [facility] * ETT LINE PERFORMABLE (12/11/2024 7:50 AM CLAIM EXAMINER) Narrative Keiry Flaherty MD - 12/11/2024 7:50 AM CLAIM EXAMINER Keiry Flaherty MD 12/11/2024 7:50 AM Endotracheal Tube Placement: Patient Location: OR. Intubation Event Date/Time: 12/11/2024 7:43 AM Procedure: intubation ([id number]) Procedure Section: Sedation: under general anesthesia. Indications for Airway Management: anesthesia Procedure pretreatments used? No Induction: standard IV Patient Position: sniffing Mask Ventilation: easy. Blade Type: Video Blade Size: 3 Laryngoscopy View: grade 1 (full cords) Intubation Adjuncts: stylet Tube: endotracheal tube Placement: oral Tube type: cuff - inflated Tube Size (MM): 7 Depth of Insertion (CM): 21 Measured From: teeth Cuff volume (mL): 6 Cuff Inflated With: air Number of Attempts: 1. Placement Verified By: direct visualization, bilateral breath sounds, CO2 monitor and chest auscultation Tube secured with: adhesive tape. Dentition unchanged? Yes Difficult Airway? No. Procedure Start Time: 12/11/2024 7:43 AM. Procedure End Time: 12/11/2024 7:44 AM. Procedure Total Time: 1 minutes. Staff Section Anesthesia Provider: Keiry Flaherty MD, Performed the procedure Provider #1: Dg Burnett MD. Result [facility] Dg Burnett MD GENERAL ANESTHESIA ORDERABLES Fi nal Result * HEMOGLOBIN A1C (12/11/2024 6:27 AM [facility]) Hemoglobin A1c 5.3 <=5.6 % 12/11/2024 9:12 AM [facility] Estimated Average Glucose 105 mg/dL 12/11/2024 9:12 AM [facility] Comment: HbA1c Interpretation: Normal : < 5.7% Pre-diabetes: 5.7-6.4% Diabetes: Equal to or greater than 6.5% Test results diagnostic of diabetes should be repeated for confirmation. Treatment target values recommended by ADA and other clinical organizations should be used to evaluate metabolic control in patients. Reference: [place] [employer], Standards of Care in Diabetes -2020 In patients 70 years and older consider HbA1c target range of 7.0-7.5% (Reference: Sarabjit Heller et al. JAMDA. 2012) The Sebia assay for the measurement of HbA1c is a National Glycohemoglobin Standardization Program (NGSP) certified method. Blood BLOOD SPECIMEN / Unknown Lab Venipuncture / Unknown 12/11/2024 6:27 AM CLAIM EXAMINER 12/11/2024 6:43 AM CLAIM EXAMINER us Mango Gaspar II, MD LAB - CHEMISTRY ORDERABL ES Final Result [facility] [address] [place] [address], [facility] [phone] * (ABNORMAL) CBC W AUTO DIFFERENTIAL (12/11/2024 6:27 AM [facility]) Only the most recent of2 resultswithin the time period is included. WBC 5.6 4.0 - 10.7 x10E9/L 12/11/2024 6:54 AM [facility] RBC Count 4.26 3.90 - 5.20 x10E12/L 12/11/2024 6:54 AM [facility] Hemoglobin 13.4 11.9 - 15.8 g/dL 12/11/2024 6:54 AM [facility] Hematocrit 39.8 34.8 - 46.1 % 12/11/2024 6:54 AM [facility] MCV 93.4 80.0 - 98.0 fL 12/11/2024 6:54 AM [facility] MCH 31.5 26.7 - 33.6 pg 12/11/2024 6:54 AM [facility] MCHC 33.7 31.7 - 36.3 g/dL 12/11/2024 6:54 AM [facility] RDW-CV 13.5 11.3 - 14.8 % 12/11/2024 6:54 AM [facility] Platelet Count 159 150 - 420 x10E9/L 12/11/2024 6:54 AM [facility] MPV 10.6 7.8 - 11.4 fL 12/11/2024 6:54 AM [facility] Neutrophil % 64.8 41.0 - 74.0 % 12/11/2024 6:54 AM [facility] Lymphocyte % 26.3 17.0 - 47.0 % 12/11/2024 6:54 AM [facility] Monocyte % 7.1 3.0 - 11.0 % 12/11/2024 6:54 AM [facility] Eosinophil % 0.2 0.0 - 7.0 % 12/11/2024 6:54 AM [facility] Basophil % 0.4 0.0 - 1.6 % 12/11/2024 6:54 AM [facility] Immature Granulocytes % 1.2(H) 0.0 - 1.0 % 12/11/2024 6:54 AM [facility] Neutrophil Absolute 3.65 1.60 - 7.50 x10E9/L 12/11/2024 6:54 AM [facility] Lymphocyte Absolute 1.48 1.00 - 4.40 x10E9/L 12/11/2024 6:54 AM [facility] Monocyte Absolute 0.40 0.15 - 1.00 x10E9/L 12/11/2024 6:54 AM [facility] Eosinophil Absolute 0.01 0.00 - 0.60 x10E9/L 12/11/2024 6:54 AM [facility] Basophil Absolute 0.02 0.00 - 0.13 x10E9/L 12/11/2024 6:54 AM [facility] Blood BLOOD SPECIMEN / Unknown Lab Venipuncture / Unknown 12/11/2024 6:27 AM [facility] 12/11/2024 6:43 AM [facility] us Mango Gaspar II, MD LAB - HEMATOLOGY ORDERAB LES Final Result [facility] [address] [place] [phone], [facility] [phone] * (ABNORMAL) RENAL FUNCTION PANEL (12/11/2024 6:27 AM [facility]) BUN 8 7 - 26 mg/dL 12/11/2024 7:23 AM [facility] Creatinine 1.12(H) 0.56 - 0.96 mg/dL 12/11/2024 7:23 AM [facility] Sodium 140 136 - 145 mmol/L 12/11/2024 7:23 AM [facility] Potassium 3.9 3.5 - 4.5 mmol/L 12/11/2024 7:23 AM [facility] Chloride 110(H) 98 - 107 mmol/L 12/11/2024 7:23 AM [facility] CO2 22 22 - 29 mmol/L 12/11/2024 7:23 AM [facility] Glucose 109(H) 70 - 99 mg/dL 12/11/2024 7:23 AM [facility] Albumin 3.9 3.4 - 5.0 g/dL 12/11/2024 7:23 AM [facility] Calcium 9.6 8.4 - 10.2 mg/dL 12/11/2024 7:23 AM [facility] Phosphorus 3.4 2.9 - 5.1 mg/dL 12/11/2024 7:23 AM [facility] Anion Gap 8 6 - 16 12/11/2024 7:23 AM [facility] BUN/Creatinine Ratio 7 7 - 23 12/11/2024 7:23 AM [facility] Osmolality Calculated 289 275 - 295 mOsm/kg 12/11/2024 7:23 AM [facility] eGFR by CKD-EPI 60(L) >=90 mL/min/1.7 3 m2 12/11/2024 7:23 AM [facility] Blood BLOOD SPECIMEN / Unknown Lab Venipuncture / Unknown 12/11/2024 6:27 AM [facility] 12/11/2024 6:43 AM [facility] us Mango Gaspar II, MD LAB - CHEMISTRY ORDERABL ES Final Result [facility] [address] [place] [phone], [facility] [phone] * MAGNESIUM BLOOD (12/11/2024 6:27 AM CLAIM EXAMINER) Magnesium 2.0 1.6 - 2.6 mg/dL 12/11/2024 7:23 AM [facility] Blood BLOOD SPECIMEN / Unknown Lab Venipuncture / Unknown 12/11/2024 6:27 AM CLAIM EXAMINER 12/11/2024 6:43 AM CLAIM EXAMINER Mango Gaspar II, MD LAB - CHEMISTRY ORDERABL ES Final Result [facility] [address] [place] [address], [facility] [phone] * (ABNORMAL) LIPID PROFILE (12/11/2024 6:27 AM CLAIM EXAMINER) Cholesterol Total 150 <200 mg/dL 12/11/2024 7:23 AM [facility] HDL 37(L) >40 mg/dL 12/11/2024 7:23 AM [facility] Comment: ATP III Classification of HDL Cholesterol: <40 mg/dL: Considered a major risk factor. >60 mg/dL: Considered a negative risk factor. LDL Calculated 97 <100 mg/dL 12/11/2024 7:23 AM [facility] Comment: ATP III Classification of LDL Cholesterol: <100 mg/dL: Optimal 100 - 129 mg/dL: Near Optimal/Above Optimal 130 - 159 mg/dL: Borderline High 160 - 189 mg/dL: High >190 mg/dL: Very High Triglycerides 79 <150 mg/dL 12/11/2024 7:23 AM [facility] Comment: ATP III Classification of Triglycerides: <150 mg/dL: Normal 150 - 199 mg/dL: Borderline High 200 - 400 mg/dL: High >500 mg/dL: Very High Blood BLOOD SPECIMEN / Unknown Lab Venipuncture / Unknown 12/11/2024 6:27 AM CLAIM EXAMINER 12/11/2024 6:43 AM CLAIM EXAMINER Mango Gaspar II, MD LAB - CHEMISTRY ORDERABL ES Final Result Performing Organization Address [facility] Co de Phone Number [address] [phone], [facility] [phone] * HCG BETA BLOOD QUANTITATIVE (12/10/2024 6:48 PM CLAIM EXAMINER) [facility] Beta-hCG Total Quantitative 3 mIU/mL 12/10/2024 7:23 PM [facility] Comment: HCG Numeric Result Interpretation: Non- Females: < 5 mIU/mL Post-Menopausal Females: < 7 mIU/mL This assay is cleared for use in the early detection of only. It is not approved for any other uses such as tumor marker screening, tumor marker monitoring, etc. and should not be used for any other purposes. Blood BLOOD SPECIMEN / Unknown Venipuncture / Unknown 12/10/2024 6:48 PM CLAIM EXAMINER 12/10/2024 6:57 PM CLAIM EXAMINER Mango Gaspar II, MD LAB - CHEMISTRY ORDERABL ES Final Result Performing Organization Address [facility] Co de Phone Number [address] [address], [facility] [phone] * (ABNORMAL) URINALYSIS REFLEX MICROSCOPIC REFLEX CULTURE (12/10/2024 12:56 PM CLAIM EXAMINER) [facility] Color UA Yellow Yellow, Straw 12/10/2024 1:22 PM [facility] Clarity UA Clear Clear 12/10/2024 1:22 PM [facility] Glucose UA Normal Normal 12/10/2024 1:22 PM [facility] Bilirubin UA Negative Negative 12/10/2024 1:22 PM [facility] Ketone UA Negative Negative 12/10/2024 1:22 PM [facility] Specific [place] UA 1.015 1.005 - 1.030 12/10/2024 1:22 PM [facility] Blood UA 2+(A) Negative 12/10/2024 1:22 PM [facility] pH UA 7.5 5.0 - 9.0 pH 12/10/2024 1:22 PM [facility] Protein UA Trace(A) Negative 12/10/2024 1:22 PM [facility] Urobilinogen UA Normal Normal mg/dL 12/10/2024 1:22 PM [facility] Nitrite UA Negative Negative 12/10/2024 1:22 PM [facility] Leukocyte UA 250 LAUREN/uL(A) Negative 12/10/2024 1:22 PM [facility] RBC UA >100(A) 0 - 5 # /hpf 12/10/2024 1:22 PM [facility] WBC UA 6-10(A) 0 - 5 # /hpf 12/10/2024 1:22 PM [facility] Bacteria UA Trace(A) None Seen 12/10/2024 1:22 PM [facility] Squamous Epithelial Cells 3-5 0 - 5 /hpf 12/10/2024 1:22 PM [facility] Mucus UA 1+ /LPF 12/10/2024 1:22 PM [facility] Urine URINE SPECIMEN OBTAINED BY CLEAN CATCH PROCEDURE / Unknown Collection / Unknown 12/10/2024 12:56 PM CLAIM EXAMINER 12/10/2024 12:59 PM CLAIM EXAMINER Nithya Antunez PA-C LAB - URINALYSIS DELFINA JOSEPH Final Result Performing Organization Address City/State/[facility] Co de Phone Number [facility] [address] [place] [phone], [facility] [phone] * (ABNORMAL) COMPREHENSIVE METABOLIC PANEL (12/10/2024 12:56 PM CLAIM EXAMINER) BUN 10 7 - 26 mg/dL 12/10/2024 1:54 PM [facility] Creatinine 1.03(H) 0.56 - 0.96 mg/dL 12/10/2024 1:54 PM [facility] Sodium 140 136 - 145 mmol/L 12/10/2024 1:54 PM [facility] Potassium 4.0 3.5 - 4.5 mmol/L 12/10/2024 1:54 PM [facility] Chloride 108(H) 98 - 107 mmol/L 12/10/2024 1:54 PM CLAIM EXAMINER [facility] CO2 23 22 - 29 mmol/L 12/10/2024 1:54 PM [facility] Glucose 102(H) 70 - 99 mg/dL 12/10/2024 1:54 PM [facility] Calcium 9.2 8.4 - 10.2 mg/dL 12/10/2024 1:54 PM [facility] Protein Total 7.3 6.0 - 8.3 g/dL 12/10/2024 1:54 PM [facility] Albumin 4.1 3.4 - 5.0 g/dL 12/10/2024 1:54 PM [facility] Bilirubin Total 0.6 0.2 - 1.2 mg/dL 12/10/2024 1:54 PM [facility] Alkaline Phosphatase 97 40 - 150 U/L 12/10/2024 1:54 PM [facility] ALT 43 5 - 55 U/L 12/10/2024 1:54 PM [facility] AST 34 5 - 34 U/L 12/10/2024 1:54 PM [facility] Anion Gap 9 6 - 16 12/10/2024 1:54 PM [facility] BUN/Creatinine Ratio 10 7 - 23 12/10/2024 1:54 PM [facility] Osmolality Calculated 289 275 - 295 mOsm/kg 12/10/2024 1:54 PM [facility] Albumin/Globulin Ratio 1.3 1.1 - 2.3 12/10/2024 1:54 PM [facility] eGFR by CKD-EPI 67(L) >=90 mL/min/1.7 3 m2 12/10/2024 1:54 PM [facility] Blood BLOOD SPECIMEN / Unknown Venipuncture / Unknown 12/10/2024 12:56 PM [facility] [facility] 12/10/2024 1:06 PM [facility] Nithya Antunez PA-C LAB - CHEMISTRY ORDER DOMINIQUE Final Result [facility] [address] [place] [address], [facility] [phone] from Last 3 Months Insurance [id number] Advance Directives * Full Code (Latest Code Status on File) Date Activated Date Inactivated Comments 12/10/2024 3:51 PM 12/12/2024 6:16 PM Care Teams Collar Pointer Relationship Specialty Start Date End Date Milton Persaud MD [address] [place] [phone] PCP - General Family Medicine 12/10/24
--- OUTSIDE RECORDS SUMMARY | 2025-01-31 21:35 | XMS_ITS | Encounter Summary ---
Author Organization [facility] Health Address [address] [facility] [place] [address] Care Team Providers Care Water Jet Loom Fixer Name Role Phone Milton Persaud MD Primary Care Provider [phone] Encounter Details Date Type Department Care Team (Late st Contact Info) Description 12/21/2024 Telephone [facility] - Urology [address] [facility] [address] [place] [id number] Norbert Cormier MD [address] [phone] Social History Tobacco Use Types Packs/Day Years Used Date Smoking Tobacco: Never Passive Smoke Exposure: Never Smokeless Tobacco: Never Alcohol Use Standard Drinks/Week Comments Never 0 (1 standard drink = 0.6 oz [...] and heating? Not hard at all 12/10/2024 [facility] [place] [facility] Occupat ional Health - Occupational Stress [...] any time in the past 12 m [facility], were you homeless or living in a long-term (including now)? 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 Answer Date of Assessment Author No 12/11/2024 12:14 PM Schuyler Krishnamurthy RN * Is person blind or have serious difficulty seeing? Answer Date of Assessment Author No 12/11/2024 12:14 PM Schuyler Krishnamurthy RN * Does person have serious difficulty walking/climbing stairs? Answer Date of Assessment Author No 12/11/2024 12:14 PM Schuyler Krishnamurthy RN * Does person have difficulty dressing/bathing? Answer Date of Assessment Author No 12/11/2024 12:14 PM Schuyler Krishnamurthy RN * Does person have difficulty doing errands alone? Answer Date of Assessment Author No 12/11/2024 12:14 PM Schuyler Krishnamurthy RN documented as of this encounter Mental Status * Does person have difficulty concentrating/remembering/making decisions? Answer Entry Date Author No 12/11/2024 12:14 PM BINDER OPERATOR Schuyler Sandhu RN documented in this encounter Miscellaneous Notes * Telephone Encounter - Diana Dwyer RN - 12/21/2024 8:24 AM CDT Returned call to patient. She has a PAT appointment today but has no transportation to get to [facility]. I advised her to call PAT and see if she can complete this by phone. She also reported that she had kidney and bladder pain about a week ago and was evaluated at [facility] where she had a CT and her urine tested. Will have records sent. Urine culture showed noinfection. She should not require any additional labs for scheduled Urologic procedure. * Telephone Encounter - Debra Mcdermott - 12/21/2024 8:13 AM CDT Current Provider: Dr Cormier Reason for Call: Pt called and is needing to know what kind of testing is supposed to done today? She is not sure what is getting done and said if she is just getting blood test she can do that closer to where she lives vs coming up here to do it. Please call pt back. Patient Call Back Number: [phone] documented in this encounter Plan of Treatment Upcoming Encounters Date Type Department Care Team (Late st Contact Info) Description 03/25/2025 11:00 AM CDT Office Visit [facility] - Urology [address] [place] [address] [address] [place] [address] Raji Fiore PA [address] [place] [address] documented as of this encounter Visit Diagnoses Not on filedocumented in this encounter Care Teams Water Jet Loom Fixer Relationship Specialty Start Date End Date Milton Persaud MD [address] [place] [phone] PCP - General Family Medicine 12/10/24 documented as of this encounter
--- OUTSIDE RECORDS SUMMARY | 2025-01-31 21:35 | XMS_ITS | Clinical Summary ---
Author Organization [facility] Address [address] [place] [id number] Care Team Providers Care Trailer Tank Truck Driver Name Role Phone Milton Persaud MD Primary Care Provider [phone] Allergies Active Allergy Reactions Criticality Noted Date [...] Nausea. 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 Gender Identity Not on file Sexual [...] 1994 COVID-19 Vaccine ( - season) 2024 Mammogram Screening 07/16/2026 07/16/2024, 12/18/2022, 11/27/2021, Additional history exists Meningococcal B Vaccine Aged Out No l onger eligible based on patient's age to complete this topic Meningococcal Vaccine Aged Out No saira randi eligible based on patient's age to complete this topic Pneumococcal Vaccine: Pediatrics (0 to 5 Years) and At-Risk Patients (6 to 49 Years) Aged Out No longer eligible based [...] 12:09 PM Narrative 07/17/2024 12:11 PM CDT [address] [place] [address] Examination: Digital bilateral screening mammogram with 3D [...] Most Recently Relevant to Health Maintenance Insurance [employer] Care Teams Trailer Tank Truck Driver Relationship Specialty Start Date End Date Milton Persaud MD [address] [place] [phone] PCP - General FAMILY PRACTICE 03/13/19
--- OUTSIDE RECORDS SUMMARY | 2025-01-31 21:35 | XMS_ITS | Encounter Summary ---
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
--- NOTE | 2025-01-31 21:38 | ED_ITS ---
HPI - Extremity Injury (Lower) General Chief Complaint: Extremity Injury, Lower Stated Complaint: R knee Injury Time Seen by Provider: 01/31/25 21:37 Source: patient Mode of arrival: ambulatory Limitations: no limitations History of Present Illness HPI Narrative: 49 years old white female slipped on a wood ground landed on the right knee and right foot. Complaining of medial-sided knee pain and right big toe pain. She denies other injuries. She declined to take any pain medication in the ED. Related Data Allergies Allergy/AdvReac Type Severity Reaction Status Date / Time No Known Allergies Allergy Verified 03/08/22 16:47 Review of Systems Review of Systems: All systems reviewed & are unremarkable except as noted in HPI and below PMFSH Past Medical History Medical History Patient denies medical problems Exam Narrative: General appearance: Well-developed, well-nourished Skin: Normal color Head: Normocephalic, nontraumatic Eyes: Clear conjunctiva ENT: Oropharynx normal, ears normal, nose normal Neck: Supple, nontender Chest and respiratory: Airway patent, no respiratory distress, no accessory muscle use Heart: Regular rate/rhythm Abdomen: Soft, nontender, no organomegaly, quiet bowel sounds Vascular: Normal peripheral pulses, normal capillary refill. Musculoskeletal: mild diffuse tenderness right knee medially, slight limited range of motion, no bruises, no swelling, no deformity. Right foot exam showed no significant abnormality. 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 is normal as tested, no gross motor deficit Course Vital Signs Vital signs: Vital Signs Temperature 36.6 C 01/31/25 21:34 Pulse Rate 90 01/31/25 21:34 Respiratory Rate 15 01/31/25 21:34 Blood Pressure 129/100 H 01/31/25 21:34 Pulse Oximetry 100 01/31/25 21:34 Oxygen Delivery Room Air 01/31/25 21:34 Temperature 36.6 C 01/31/25 21:34 Pulse Rate 90 01/31/25 21:34 Respiratory Rate 15 01/31/25 21:34 Blood Pressure 129/100 H 01/31/25 21:34 Pulse Oximetry 100 01/31/25 21:34 Oxygen Delivery Room Air 01/31/25 21:34 MDM - Extremity Injury (Lower) MDM Narrative Medical decision making narrative: Differential diagnosis include contusion versus fracture, x-ray of the right knee and right foot showed no acute abnormality. Differential Diagnosis Differential diagnosis: Likely other ( As above) Imaging Data Radiologist's impression: Impressions Foot X-Ray 01/31/25 22:14 IMPRESSION: No acute osseous finding in the right foot. Knee X-Ray 01/31/25 22:16 IMPRESSION: No acute osseous finding in the right knee. Critical Care Time Critical Care Time Critical Care Time: No Discharge Plan Discharge Clinical Impression: Contusion of knee, right Patient Disposition: Home Condition: Stable Instructions: Knee Pain (ED) Additional Instructions: Return if symptoms are worsening , call your family physician for appointment, take Tylenol 615 and or ibuprofen 600 every 6 hour as as needed for aches and pain, continue home medications. Patient Language: Belarusian Prescriptions: No Action nystatin 100,000 unit/mL suspension 1 ml PO QID 10 Days Qty: 40 0RF Rx Instructions: administer 1/2 of dose in each side of the mouth Follow-up/Referrals: Albina,MERCY Diaz [Primary Care Provider] -
--- NOTE | 2025-01-31 21:40 | PC.NURSE ---
[facility] WITH RADIOLOGY AT THE BEDSIDE
[2025-01-31 22:37] VITALS: BP 126/88; PULSE 82; RESP 18; O2SAT 96
== END 2025-01-31 22:37 | disposition home or self-care (01) ==
PROVIDERS: Emergency Provider Emergency Medicine; PCP Physician Assistant
DX: S80.01XA Contusion of right knee, initial encounter (principal); W01.0XXA Fall on same level from slipping, tripping and stumbling without subsequent striking against object, initial encounter
CPT/HCPCS: 73562; 73630; 99283; L1830